=== PATIENT | female | born 1970 ===

== ENCOUNTER 2017-03-03 17:40 | Emergency (ER) | payer BC ==
[2017-03-03 18:10] VITALS: BP 105/67
--- NOTE | 2017-03-03 19:31 | RAD ---
Indication: Dislocation and reduction of the distal interphalangeal joint. 3 views of the right index finger demonstrates no fracture. No other bone or joint abnormality is noted. IMPRESSION: No fracture of the right index finger is noted.
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
== END 2017-03-03 19:39 | disposition home or self-care (01) ==
LOC: UCEAST 17:40
DX: S63.610A Unspecified sprain of right index finger, initial encounter (principal); X58.XXXA Exposure to other specified factors, initial encounter; Y93.89 Activity, other specified; Y92.9 Unspecified place or not applicable; Z88.2 Allergy status to sulfonamides; Z88.1 Allergy status to other antibiotic agents; Z91.040 Latex allergy status; F12.90 Cannabis use, unspecified, uncomplicated
CPT/HCPCS: 73140; 99212; G0463

== ENCOUNTER 2018-02-12 18:17 | Emergency (ER) | payer BC ==
[2018-02-12] MEDS ORDERED: Tetan/Diph/Pertus SYR(Tdap)* 0.5 ML SYR(BOOSTRIX) use SYR IM ONE (19:31)
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
[2018-02-12] MEDS ORDERED: Cephalexin CAP* 500 MG PO ONE (19:45)
[2018-02-12] MEDS ORDERED: Ketorolac INJ* 30 MG/ML 1 ML VIAL IV PUSH ONE (20:03)
[2018-02-12] MEDS ORDERED: ceFAZolin 1 GM in Dextrose (*) 1 GM/50 ML BAG IVPB ONE (20:03)
--- NOTE | 2018-02-12 20:32 | RAD ---
INDICATION: Left forearm injury. TECHNIQUE: 2 views of the left forearm were obtained. FINDINGS: There is an oblique fracture of the mid diaphysis of the ulna. The distal fragment is displaced approximately one half shaft diameter posterior and 1 cortical diameter medial relative to the proximal fragment. There is slight anterior angulation of the distal fragment relative to the proximal fragment. IMPRESSION: DISPLACED FRACTURE OF THE MID DIAPHYSIS OF THE ULNA.
[2018-02-12] MEDS ORDERED: oxyCODONE/Acetamin 5/325 MG* TAB PO ONE (20:53)
[2018-02-12 21:50] VITALS: BP 108/69
== END 2018-02-12 21:49 | disposition home or self-care (01) ==
LOC: ED 18:17
DX: S52.202A Unspecified fracture of shaft of left ulna, initial encounter for closed fracture (principal); S51.812A Laceration without foreign body of left forearm, initial encounter; V19.9XXA Pedal cyclist (driver) (passenger) injured in unspecified traffic accident, initial encounter; Y93.55 Activity, bike riding; Y92.9 Unspecified place or not applicable
CPT/HCPCS: 12001; 29125; 90471; 90715; 96374; 99282; A9270-GY; J0690; J1885

== ENCOUNTER 2018-02-13 15:29 | Inpatient (IN) | payer BC ==
[2018-02-13] MEDS ORDERED: Buffered Lidocaine 0.9% SYRIN* 5 ML/SYR SYRINGE INTRADERM ONE (15:39)
[2018-02-13] MEDS ORDERED: Propofol* 10 MG/ML 20 ML BTL IV PUSH ONE (16:24)
[2018-02-13] MEDS ORDERED: ROPIVACAINE 5 MG/ML 30 ML BTL (0.5%) ONE (16:25)
[2018-02-13] MEDS ORDERED: Succinylcholine* 20 MG/ML 10 ML VIAL ONE (16:25)
[2018-02-13] MEDS ORDERED: Rocuronium* 10 MG/ML VIAL ONE (16:25)
[2018-02-13] MEDS ORDERED: Lidocaine 2% PF * 5 ML VIAL ONE ×2 (16:25)
[2018-02-13] MEDS ORDERED: fentaNYL* 50 MCG/ML 2 ML VIAL (100 MCG VIAL) ONE ×2 (16:26→18:12)
[2018-02-13] MEDS ORDERED: Midazolam* 1 MG/ML 2 ML VIAL (2 MG) ONE (16:26)
[2018-02-13] MEDS ORDERED: ceFAZolin 2 GM PREMIX (*) 2 GM/50 ML BAG IVPB ONE (17:12)
[2018-02-13] MEDS ORDERED: Dexamethasone IV* 4 MG/ML 1 ML (4 MG) ONE (18:20)
[2018-02-13] MEDS ORDERED: Ondansetron INJ* 2 MG/ML VIAL ONE (19:08)
[2018-02-13] MEDS ORDERED: Metoclopramide IV* 5 MG/ML 2 ML VIAL ONE (19:08)
[2018-02-13] MEDS ORDERED: Ketorolac INJ* 30 MG/ML 1 ML VIAL ONE (19:08)
[2018-02-13] MEDS ORDERED: Ondansetron INJ* 2 MG/ML VIAL IV PRN (19:39)
[2018-02-13] MEDS ORDERED: diPHENhydraMINE PO* 25 MG PO PRN (19:39)
[2018-02-13] MEDS ORDERED: Morphine INJ* 2 MG/ML 1 ML SYRINGE (TWO MG - NEW SYRINGE VERSION) IV PRN (19:39)
[2018-02-13] MEDS ORDERED: Acetaminophen TAB* 325 MG PO PRN ×2 (19:39→19:42)
[2018-02-13] MEDS ORDERED: Magnesium Hydroxide LIQ* 30 ML UDC PO PRN (19:39)
[2018-02-13] MEDS ORDERED: oxyCODONE/Acetamin 5/325 MG* TAB PO PRN (19:39)
[2018-02-13] MEDS ORDERED: HYDROmorphone INJ* 0.5 MG/0.5 ML SYRINGE IV PRN (19:42)
[2018-02-13] MEDS ORDERED: DiMENhydriNATE IV* 50 MG/ML VIAL IV PUSH PRN (19:42)
[2018-02-13] MEDS ORDERED: Naloxone* 0.4 MG/ML 1 ML VIAL IV PRN (19:42)
[2018-02-13] MEDS: Magnesium Hydroxide LIQ* 30 ML UDC PO SCH (22:49)
[2018-02-13] MEDS: Docusate CAP* 100 MG PO SCH (22:49)
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
[2018-02-14] MEDS ORDERED: ceFAZolin 1 GM in Dextrose (*) 1 GM/50 ML BAG IVPB SCH (02:00)
[2018-02-14] MEDS: [UNRECOGNIZED DRUG - OTHER] IVPB SCH ×4 (02:18→09:17)
[2018-02-14] MEDS: oxyCODONE/Acetamin 5/325 MG* TAB PO PRN ×4 (03:50→16:50)
[2018-02-14 05:36] LABS: Hematocrit 35 % (35-47); Hemoglobin 12.8 g/dl (12.0-16.0); Mean Platelet Volume 7.7 um3 (7.4-10.4); Platelet Count 165 10^3/ul (150-450)
[2018-02-14 05:50] LABS: EGFR Non-African American 81.1 (>60)
--- NOTE | 2018-02-14 07:15 | RAD ---
INDICATION: Traumatic fracture of the left ulna operative reduction internal fixation. COMPARISON: Comparison is made with a prior x-ray study of the forearm from February 12, 2018. TECHNIQUE: 7 seconds of intermittent fluoroscopic guidance were provided and 4 spot films of the left forearm were obtained in the operating room. FINDINGS: The films demonstrate operative reduction internal fixation of a oblique fracture of the mid diaphysis of the ulna. There is a surgical metallic plate present along the medial aspect of the ulna transfixed with multiple screws surgical screw spanning the fracture fragments. IMPRESSION: INTRAOPERATIVE CONTROL FILMS. CPT II Codes: G9500
[2018-02-14] MEDS: Docusate CAP* 100 MG PO SCH (09:18)
[2018-02-14] MEDS: Magnesium Hydroxide LIQ* 30 ML UDC PO SCH (09:31)
[2018-02-14] MEDS ORDERED: Ketorolac INJ* 15 MG/ML 1 ML VIAL IV PUSH ONE (14:18)
--- NOTE | 2018-02-14 16:23 | PN ---
Progress Note - Progress Note Date of Service: 02/14/18 SOAP: Subjective: []Patient seen at bedside. She feels well though complains of left wrist pain. Denies CP, SOB, dizziness. Her pain is significantly improved by toradol. Objective: General: Well appearing, NAD LUE: Left hand without erythema or edema. Sensation intact to light touch throughout all 5 digits. Able to flex and extend all 5 digits, produce thumbs up and okay sign, to flex and extend elbow. Assessment: Left ulna ORIF Plan: LAMAR DUMONT DC home on keflex x 5 days F/U Dr Chaves in 1 week, sooner with concerns []
[2018-02-14 17:44] VITALS: BP 109/70
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
== END 2018-02-14 17:30 | disposition home or self-care (01) | DRG 315 ==
LOC: OR 15:29 → SSU 21:45
PROVIDERS: ADMIT Orthopaedic Surgery; ATTEND Orthopaedic Surgery
PROC: 0PSL04Z Reposition Left Ulna with Internal Fixation Device, Open Approach (ICD-10-PCS; principal; 2018-02-13 17:00)
DX: S52.202B Unspecified fracture of shaft of left ulna, initial encounter for open fracture type I or II (principal); S51.812A Laceration without foreign body of left forearm, initial encounter; M79.672 Pain in left foot; V19.60XA Unspecified pedal cyclist injured in collision with unspecified motor vehicles in traffic accident, initial encounter; Z88.2 Allergy status to sulfonamides; Z88.1 Allergy status to other antibiotic agents; Z91.040 Latex allergy status; Z80.9 Family history of malignant neoplasm, unspecified
CPT/HCPCS: 36415; 76000; 80048; 81025; 85014; 85018; 85049; A9270-GY; C1713; C1776; J0330; J0690; J1100; J1885; J2250; J2270; J2405; J2704; J2765; J2795; J3010